=== PATIENT | female | born 1985 ===

== ENCOUNTER 2018-07-23 07:34 | Inpatient (IN) ==
[2018-07-23] MEDS ORDERED: LORazepam 1 MG Tablet PO PRN (14:03)
[2018-07-23] MEDS ORDERED: Aluminum/Magnesium/Simethacone Susp 30 ML UDC PO PRN (14:03)
[2018-07-24 08:40] LABS: Anion Gap 9 meq/L (5-15); Blood Urea Nitrogen 12 mg/dL (7-18); Calcium 8.1 mg/dL (8.5-10.1); Carbon Dioxide 26.2 meq/L (21.0-32.0); Chloride 111 meq/L (98-107); Cholesterol 99 mg/dL (120-200); Glomerular Filtration Rate Greater Than 89 mL/min (>89); Glucose,Random 82 mg/dL (74-106); Potassium 4.1 meq/L (3.5-5.1); Sodium 146 meq/L (136-145)
[2018-07-24 08:44] LABS: Chol/HDL Ratio 2.62 Ratio; HDL Cholesterol 37.7 mg/dL (40.0-60.0); LDL Cholesterol,Calculated 48 mg/dL (0-99); Triglycerides 68 mg/dL (42-150)
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
[2018-07-24 12:53] LABS: Hemoglobin A1c 4.9 % (4.3-6.0)
--- NOTE | 2018-07-25 12:58 | P.PNPSY ---
Subjective Remarks: The patient was seen today for psychiatric reevaluation. Case discussed with nurses in charge. Documentation from the weekend reviewed. Psychiatric evaluation today patient is disorganized, demanding to be discharged, she is very labile, tearful, stating that she has to leave because she has a court date and she wants to see her kids. The patient has been talking to herself, very labile, disorganized, but no agitated or aggressive. She denies suicidal enemas ideation, she denies visual and auditory hallucinations. Mental Status Examination Appearance: Appropriate, Disheveled Consciousness: Alert (Mildly) Orientation: Person, Place, Date/Time, Situation Motor Activity: Normal gait Speech: Unremarkable Language: Adequate Fund of Knowledge: Adequate Attention and Concentration: Easily distracted Memory: Unremarkable (Fair) Mood: Angry, Anxious, Irritable Affect: Other (Slight increased range and intensity) Thought Process & Associations: Intact Thought Content: Appropriate, Bizarre thinking (Vague) Hallucination Type: None Delusion Type: None Suicidal Ideation: No Suicidal Plan: No Suicidal Intention: No Homicidal Ideation: No Homicidal Plan: No Homicidal Intention: No Insight: Poor Judgment: Poor Assessment and Plan - Assessment (1) Adjustment disorder with mixed disturbance of emotions and conduct Code(s): F43.25 - Adjustment disorder with mixed disturbance of emotions and conduct Status: Acute (2) Amphetamine abuse Code(s): F15.10 - Other stimulant abuse, uncomplicated Status: Acute - Plan Plan: The patient continues to be disorganized, at times talking to herself, very labile, which I consider is a still the product of drug intoxication. She will remain another 24 hours without medication, if the patient is at baseline tomorrow she could be discharged, if she continues to be psychotic then I will start psychotropics. Justification for Continued Inpatient Stay: Patient is psychotic. Request Healthcare Surrogate/Guardian Advocate?: No
[2018-07-25] MEDS: Acetaminophen 325 MG Tablet PO PRN ×2 (13:30→20:57)
[2018-07-26 05:42] VITALS: BP 99/57; PULSE 74; RESP 16; TEMP 97.9; O2SAT 98
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
--- NOTE | 2018-07-26 09:56 | P.TTN ---
- Patient Problems Problems: 1. Discharge planning 2. Medication compliance 3. Knowledge deficit 4. Lack of coping skills - Progress Toward Goals Provider Present: Dr. Lavon Alejandra Provider Input: remained for observation will seek follow up through her court ordered program. denies suicidal ideations and no interest in medications Nurse Input: Amita: keeps to herself and no issues but some aggitation Psychiatric Counselors Present: Jimena Bauer LCSW Psychiatric Therapist Input: patient is ready to return home and address her house arrest and start treatment for substance abuse ordered by fredi and CARI, she has to report as soon as discharged, she wears her ankle bracelet. she tested positive for Meth here but is very eager that this was a false test Group Spec/RT/OT/WALLACE Present: Moses Whittaker OT (no groups) Group Spec/RT/OT/WALLACE Input: attends 75% of all groups - Documentation Teaching Recipient: Patient
== END 2018-07-26 14:00 | disposition home or self-care (01) ==
LOC: H260 10:55
PROVIDERS: ADMIT Psychiatry & Neurology Psychiatry; ATTEND Psychiatry & Neurology Psychiatry
CPT/HCPCS: 80048; 80061; 83036; Q0163